=== PATIENT | female | born 1995 | race Caucasian/White ===

== ENCOUNTER 2019-06-04 22:36 | Emergency (ER) | payer BC ==
[2019-06-04] MEDS ORDERED: Ondansetron 4 MG/2 ML SDV IVPUSH ONE (22:59)
[2019-06-04] MEDS ORDERED: HYDROmorphone 1 MG/ML Syringe IVPUSH ONE (22:59)
[2019-06-04] MEDS ORDERED: Sodium Chloride 0.9% 1,000 ML IV SCH (23:00)
--- NOTE | 2019-06-04 23:04 | EDM.PDOC ---
ED HPI GENERAL MEDICAL PROBLEM - General Chief Complaint: Lower Extremity Injury/Pain Stated Complaint: POSSIBLE RIGHT FOOT BROKEN Time Seen by Provider: 06/04/19 22:46 Source of Information: Reports: Patient, Other (Friend) History Limitations: Reports: No Limitations - History of Present Illness INITIAL COMMENTS - FREE TEXT/NARRATIVE: Ms. Ramon is a very pleasant 24-year-old woman with no chronic medical issues, who states that her right foot was stepped on while she was playing a game of musical chairs around 22:25 this evening. She was wearing cowboy boots at the time; her right cowboy boot has since renetta cut off. She presents with her right foot externally rotated. She is otherwise uninjured. No prior right ankle/ foot injury. The patient states that she had only one sip of alcohol tonight. She did not take any [id number] medicines prior to coming to the ED. The patient does not have a PCP. She did not receive an influenza vaccine this season, but agreed to receive one here today. Right Ankle Pain Score (Numeric/FACES): 10 - Related Data Allergies Allergy/AdvReac Type Severity Reaction Status Date / Time No Known Allergies Allergy Verified 06/04/19 22:53 Home Meds: Home Meds Acetaminophen/HYDROcodone [Reno 325-5 MG] 1 - 2 tab PO Q6H PRN #24 tablet 06/05 [Rx] Birthcontrol. 1 tab PO DAILY 06/05/19 [History] Past Medical History Endocrine/Metabolic History: Reports: Obesity/BMI 30+ - Past Surgical History HEENT Surgical History: Reports: Tonsillectomy Musculoskeletal Surgical History: Reports: Arthroscopic Knee (right) Social & Family History - Tobacco Use Smoking Status *Q: Never Smoker - Alcohol Use Alcohol Use History: Yes Alcohol Use Frequency: Socially - Recreational Drug Use Recreational Drug Use: No - Living Situation & Occupation Living situation: Reports: Single, Other (Friends) Occupation: Student ([employer]) Review of Systems - Review of Systems Review Of Systems: Comprehensive ROS is negative, except as noted in HPI. ED EXAM, GENERAL - Physical Exam Exam: See Below Exam Limited By: No Limitations General Appearance: Alert, WD/WN, Anxious (crying earlier) Extremities: Other (The right foot is externally angulated to the leg. She denies paresthesias to the foot, and there is a strong dorsalis pedis pulse and the foot is warm. Posterior tibialis pulse is difficult to detect, due to the ankle deformity.) Course - Vital Signs Last Recorded V/S: Last Vital Signs Temp 37.3 C 06/04/19 22:45 Pulse 104 H 06/04/19 22:45 Resp 22 H 06/04/19 22:45 BP 146/94 H 06/04/19 22:45 Pulse Ox 100 06/04/19 22:45 - Orders/Labs/Meds Orders: Active Orders 24 hr Category Date Time Status Influenza Vaccine Charge [RC] .DISCHARGE Care 06/04/19 22:59 Active Ankle 2V Rt [CR] Stat Exams 06/04/19 22:58 Taken Ankle Min 3V Rt [CR] Stat Exams 06/05/19 00:30 Taken DME for Discharge [COMM] Stat Oth 06/05/19 00:54 Ordered Meds: Medications Discontinued Medications Generic Name Dose Route Start Last Admin Trade Name Freq PRN Reason Stop Dose Admin Hydromorphone HCl 1 mg 06/04/19 22:59 06/04/19 23:14 Dilaudid IVPUSH 06/04/19 23:00 1 mg ONETIME ONE Administration Hydromorphone HCl 1 mg 06/05/19 00:10 06/05/19 00:13 Dilaudid IVPUSH 06/05/19 00:11 1 mg ONETIME ONE Administration Hydromorphone HCl Confirm 06/05/19 00:12 06/05/19 00:17 Dilaudid Administered 06/05/19 00:13 Not Given Dose 1 mg .ROUTE .STK-MED ONE Sodium Chloride 1,000 mls @ 100 mls/hr 06/04/19 23:00 06/04/19 23:15 Normal Saline IV 100 mls/hr ASDIRECTED AUDREY Administration Influenza Virus Vaccine 1 each 06/04/19 22:59 Pharmacy To Dose - Influenza Vaccine IM 06/04/19 23:00 ONETIME ONE Influenza Virus Vaccine 60 mcg 06/04/19 23:15 06/04/19 23:19 Fluzone Quad Syringe IM 06/04/19 23:16 60 mcg .ONCE ONE Administration Ondansetron HCl 4 mg 06/04/19 22:59 06/04/19 23:15 Zofran IVPUSH 06/04/19 23:00 4 mg ONETIME ONE Administration - Re-Assessments/Exams Free Text/Narrative Re-Assessment/Exam: 06/04/19 23:00 The patient's right foot is externally rotated, consistent with a trimalleolar fracture. I have ordered x-rays of the right ankle to evaluate. In the meantime, patient will be given IV Dilaudid, IV Zofran, and IV fluid. 06/04/19 23:37 2-view radiographs of the right ankle appear to demonstrate posterior dislocation of the foot with respect to the ankle, with a fracture and posterolateral angulation of the distal fibula as well as a comminuted fracture to the medial malleolus. I do not see an injury to the posterior malleolus, therefore her injury appears to be a bimalleolar fracture, not a trimalleolar. 06/04/19 23:50 X-ray results discussed with the patient and her friend. I explained that I will be reducing her ankle shortly, and that it will require surgery, typically within 2 to 3 days, but that I would like to discuss the case with an Orthopedic Surgeon joaquin, just to make sure that they do not feel that it needs to be done sooner. Unfortunately, Dr. Greene is not on-call joaquin, although he will be tomorrow. The patient has no preference as to [facility] versus [facility]. X-ray images pushed to [facility] at 23:50. 06/05/19 00:00 Case discussed with Kimberlee at [facility] at 23:56. Case then discussed with Dr. Ng, Orthopedic Surgeon on-call at [facility], at 23:58. He agreed that surgical repair can wait until early next week. 06/05/19 00:28 After a second dose of IV Dilaudid, the patient's right foot was successfully reduced into normal anatomic position. A posterior mold Ortho-Glass splint was then applied, with the patient's ankle at 90 degrees. The patient tolerated the procedure well. The patient's toes are warm, with normal sensation. I have ordered postreduction x-rays. 06/05/19 00:47 4-view post-reduction radiographs of the right ankle appear to demonstrate complete reduction of the previous dislocation. The distal fibular fracture is likewise reduced, with minimal posterior displacement. There does appear to be some posterior malleolar damage, confirming a trimalleolar fracture. The patient will be fitted with crutches. She stated that her intention is to return home to [place] to have the operative repair. The patient has already been provided with a CD-ROM of her x-ray images. I will discharge her home with a prescription for Reno and a referral to Dr. Greene, in the event that she cannot get back to [place]. The patient will be given an influenza vaccine prior to discharge. Departure - Departure Time of Disposition: 00:49 Disposition: Home, Self-Care 01 Condition: Good Clinical Impression: Closed right trimalleolar fracture - Discharge Information *PRESCRIPTION DRUG MONITORING PROGRAM REVIEWED*: Not Applicable *COPY OF PRESCRIPTION DRUG MONITORING REPORT IN PATIENT WADE: Not Applicable Prescriptions: Acetaminophen/HYDROcodone [Reno 325-5 MG] 1 - 2 tab PO Q6H PRN #24 tablet PRN Reason: Pain (Severe 7-10) Instructions: Ankle Fracture, [id number], Cast or Splint Care, Adult Referrals: PCP,None [Primary Care Provider] - Ernseto Greene MD [Physician] - Forms: ED Department Discharge Additional Instructions: You were seen in the emergency room after your right foot was stepped on while playing musical chairs, breaking your right ankle. Work-up in the ER included x-rays of your right ankle, which confirmed that you have a trimalleolar fracture with a posterior dislocation. Your foot was reduced (put back into place) in the ER, and your leg placed into a splint. We recommend that you ice and elevate your right ankle as much as possible over the next 2 days, to help minimize swelling. Do not get the splint wet. You have been fitted with crutches. Use the crutches with all ambulation, and be careful going up or down stairs. Do not bear weight on the splint - it is made of fiberglass, and will break. We recommend that you take [id number] ibuprofen, 3 to 4 tablets (600-800 mg) with food, every 8 hours, [id number]. In addition to ibuprofen, you may take 1 to 2 tablets of the prescription opioid Reno up to every 6 hours, for pain not relieved by ibuprofen. Follow-up with your Orthopedic Surgeon in [place] this coming 06/06/2019 , to arrange for surgical repair of your ankle. If, for some reason, you are unable to get back to [place], you may follow-up with the Orthopedic Surgeon Dr. Ernesto Kay on Thursday. If any other problems, please do not hesitate to return to the ER. *You were given an influenza vaccine during your ER visit.* Sepsis Event Note - Evaluation Sepsis Screening Result: No Definite Risk - Focused Exam Vital Signs: Vital Signs Temp Pulse Resp BP Pulse Ox 06/04/19 22:45 37.3 C 104 H 22 H 146/94 H 100 Date Exam was Performed: 06/05/19 Time Exam was Performed: 03:29 - My Orders Last 24 Hours: My Active Orders 06/04/19 22:58 Ankle 2V Rt [CR] Stat 06/04/19 22:59 Influenza Vaccine Charge [RC] .DISCHARGE 06/05/19 00:30 Ankle Min 3V Rt [CR] Stat 06/05/19 00:54 DME for Discharge [COMM] Stat - Assessment/Plan Last 24 Hours: My Active Orders 06/04/19 22:58 Ankle 2V Rt [CR] Stat 06/04/19 22:59 Influenza Vaccine Charge [RC] .DISCHARGE 06/05/19 00:30 Ankle Min 3V Rt [CR] Stat 06/05/19 00:54 DME for Discharge [COMM] Stat
[2019-06-04] MEDS ORDERED: FLU Vacc QS2019-20(6MOS+)/PF 60 MCG/0.5 ML SYRINGE IM ONE (23:15)
[2019-06-05] MEDS ORDERED: HYDROmorphone 1 MG/ML Syringe IVPUSH ONE (00:10)
[2019-06-05] MEDS ORDERED: HYDROmorphone 1 MG/ML Syringe ONE (00:12)
--- NOTE | 2019-06-05 18:25 | CR ---
Right ankle: 4 views of the right ankle were obtained. Comparison: Prior right ankle study performed earlier on the same day (11:14 PM). Previous dislocation has been reduced. Lateral malleolus fracture shows displacement on the lateral view by about 3 mm. Small displaced fracture within the tip of the medial malleolus. Fiberglas splint is in place. Soft tissue swelling is again noted. Impression: 1. Bimalleolar fracture showing reduction. Dislocation seen previously has also been reduced. 2. Other findings as noted above. Diagnostic code #2 This report was dictated in [place] Standard Time
--- NOTE | 2019-06-05 18:25 | CR ---
Right ankle: 2 views of the right ankle were obtained. Comparison: No previous ankle exam is available. Displaced lateral malleolus fracture as well as fracture within the inferior tip of the medial malleolus. Dislocation of the tibia anteriorly in relation to the talus. There is also mild medial shifting of the ankle mortise. Soft tissue swelling is seen. Impression: 1. Bimalleolar fracture. 2. Dislocation at the tibiotalar joint. 3. Soft tissue swelling. Diagnostic code #3 This report was dictated in [place] Standard Time
== END 2019-06-05 01:05 | disposition home or self-care (01) ==
LOC: JD.ED 22:36
DX: S82.851A Displaced trimalleolar fracture of right lower leg, initial encounter for closed fracture (principal); Z23 Encounter for immunization; E66.9 Obesity, unspecified; Z68.30 Body mass index [BMI] 30.0-30.9, adult; W22.8XXA Striking against or struck by other objects, initial encounter
CPT/HCPCS: 27818; 73600; 73610; 90471; 90686; 96361; 96374; 96375; 96376; 99283; J1170; J2405; J7030; G0008